=== PATIENT | female | born 1975 | race Caucasian/White ===

== ENCOUNTER 2016-10-08 10:57 | Day surgery (SDC) | payer OTHER ==
[2016-10-06 13:58] LABS: ASCORBIC ACID (UR NOT ORDER) NEG (NEG); BILIRUBIN, URINE NEGATIVE (NEG); KETONE, URINE NEGATIVE (NEG); LEUKOCYTE ESTERASE(NOT OR TRACE (NEG); WBC (NOT ORDERED) (RFLEX) 5 (0-5)
[2016-10-06 14:43] LABS: HEMATOCRIT 39.9 % (36.0-48.0); HEMOGLOBIN 13.5 g/dL (12.0-16.0)
--- NOTE | ~2016-10-08 | OP ---
Record Of Operation [facility] [address] [place]. [address] NAME: JONATHAN GERMAIN : 73 STATUS : [facility]#: [id number] AGE: 40 ADM/REG DATE : 10/08/16 MR#: [id number] REPORT SERV DATE: 10/08/16 DICTATED BY: Yessi TORREZ DATE: 10/08/16 REPORT STATUS : Draft TRANSCRIBED BY: BISI DATE: 10/08/16 DATE OF PROCEDURE: 10/08/2016 PREOPERATIVE DIAGNOSIS: Left proximal ureteral stone, 8 mm. POSTOPERATIVE DIAGNOSIS: Left proximal ureteral stone, 8 mm. PROCEDURE: Left extracorporeal shock wave lithotripsy. ANESTHESIA: MAC. COMPLICATIONS: None. DRAINS: None. BRIEF HISTORY: Ms. Germain is a 40-year-old white female, who presented earlier in the week with an 8 mm left proximal ureteral stone. It was located adjacent to L5 and had a speckled appearance, it was somewhat hard to see, it was well seen on CT scan. We discussed management options and decided to proceed with ESWL. The risks of bleeding, infection, anesthesia, injury to adjacent organs, need for retreatment, endoscopy, ureteroscopy with stent placement, etc., were all discussed. There were no unanswered questions. The patient has had a little pain since I last saw her. DESCRIPTION OF PROCEDURE: Under excellent MAC anesthesia, the patient was placed supine on the Dornier Delta II lithotripsy machine. An anterior approach was used and the stone was localized at F2. A total of 3000 shocks at a power level of up to 5 were delivered to the stone. The patient tolerated the procedure well and will be discharged as an outpatient with the following instructions. DISCHARGE INSTRUCTIONS: 1. Home today. 2. Strain all urine and save any fragments. 3. Percocet 5/325 one to two p.o. q.4 hours p.r.n. pain, #20. 4. Tamsulosin 0.4 mg p.o. daily 30 minutes after the same meal, #14 with three refills. 5. Follow up in my office in one to two weeks with a KUB. GENIA/BISI Yessi Torrez M.D. / [id number] CC: Record Of Operation [address] [place]. [address] NAME: JONATHAN GERMAIN : 73 STATUS : [facility] PAT#: [id number] AGE: 40 ADM/REG DATE : 10/08/16 MR#: [id number] REPORT SERV DATE: 10/08/16 DICTATED BY: Yessi TORREZ DATE: 10/08/16 REPORT STATUS : Draft TRANSCRIBED BY: BISI DATE: 10/08/16 Estelle Childs M.D.
[~2016-10-08 10:57] MED LIST: ACET500CAP PO; LIPOTRIAD1 CAP PO; MAGOX4 PO; PCET PO; PRILO PO; ZOFRAN4 PO
== END 2016-10-08 16:14 | disposition home or self-care (01) ==
LOC: SDC 10:57
PROC: 0TF7XZZ Fragmentation in Left Ureter, External Approach (ICD-10-PCS; principal; 2016-10-08 13:00)
DX: N20.1 Calculus of ureter (principal); I10 Essential (primary) hypertension; K21.9 Gastro-esophageal reflux disease without esophagitis; N20.0 Calculus of kidney; Z88.2 Allergy status to sulfonamides
CPT/HCPCS: 50590; 74000; 81001; 84703; 85014; 85018; A9270-GY; J2250; J2405; J3010